=== PATIENT | male | born 1960 | race Caucasian/White ===

== ENCOUNTER 2025-07-24 10:38 | Outpatient (AMB) | payer OTHER, SELFPAY ==
--- NOTE | 2025-07-24 10:52 | A.OFFVIS_ITS ---
Intake Visit Reasons: follow up Allergies No Known Allergies Allergy (Verified 07/24/25 10:58) Medication List - Last Reconciled 07/24/25 by Emily Hill CNP aspirin 81 mg PO DAILY atorvastatin (Lipitor) 80 mg PO DAILY bismuth subsalicylate (Bismuth) 2 tabs PO QID carbidopa-levodopa 25-100 mg (Sinemet) 2 tabs PO .five times a day cholecalciferol (vitamin D3) 25 mcg PO DAILY clonazepam (Klonopin) 0.5 mg PO BID divalproex 250 mg PO TID lurasidone (Latuda) 60 mg PO DAILY melatonin 10 mg PO BEDTIME PRN paroxetine HCl 20 mg PO DAILY primidone 100 mg PO BID quetiapine (Seroquel) 25 mg PO BEDTIME HPI Comments Details: 65-year-old man with history of hepatitis C, CHF, MCI, and psychiatric disorder treated with multiple medications (including Seroquel, paroxetine, Latuda, clonazepam, and divalproex sodium) here for tremor. He has over 20-year history of shaking in his hands, R > L, that slowly worsened, but also involves his head, jaw, and right leg beginning around 2021. He denies family history of tremor. He was having more tremors in both hands at rest. Tremors were bothersome. He had some trouble eating because of tremors, especially soup. No difficulty swallowing. He was taking carbidopa-levodopa 2 tablets five times a day, and primidone 100mg twice a day. He was walking with cane or walker, and has had a few falls, with last fall about 1 week ago. Mood was so-so. He said psychiatric medications were currently being prescribed by PCP, and he was on wait list for psychiatrist and therapist. Sleep was so-so. COUNT INCLUDES THE [facility] Medical History (Updated 07/24/25 @ 11:06 by Emily Hill CNP) HLD (hyperlipidemia) Generalized anxiety disorder Hepatitis C Parkinsonian tremor CHF (congestive heart failure) Hypertension Bipolar disorder Benign essential tremor Review of Systems Const Denies chills, Denies daytime sleepiness, Reports difficulty sleeping, Denies fatigue, Denies fever(s), Denies frequent falls, Denies headache(s), Denies increased appetite, Denies poor appetite, Denies snoring, Denies weakness, Denies weight gain and Denies weight loss Eyes Denies loss of vision ENT Denies vertigo, Denies dizziness, Denies headache(s) and Denies neck pain Card Denies chest pain at rest, Denies chest pain with activity, Denies syncope, Denies leg edema, Denies palpitations, Denies dyspnea and Denies dyspnea on exertion Resp Denies cough, Denies dyspnea, Denies dyspnea on exertion and Denies snoring GI Denies abdominal pain, Denies constipation, Denies heartburn, Denies diarrhea and Denies nausea Denies urinary frequency, Denies urinary incontinence and Denies urinary urgency Musc Reports abnormal gait, Denies back pain, Denies myalgias, Reports arthralgias, Denies neck pain, Denies numbness and Denies tingling Neuro Reports abnormal gait, Denies vertigo, Denies dizziness, Denies syncope, Denies frequent falls, Denies headache(s), Denies lack of coordination, Denies loss of vision, Denies memory loss, Denies numbness, Denies Other visual disturbances, Reports restless legs, Denies seizure-like activity, Denies tingling, Denies paresthesias, Reports tremor(s) and Denies weakness Psych Reports anxiety, Denies depression, Denies auditory hallucinations, Denies memory loss and Denies visual hallucinations Endo Denies fatigue and Denies palpitations Physical Exam Const Other: General Appearance:? normal, in no acute distress. Heart:? S1, S2 normal, no murmurs. Lungs:? clear anteriorly and posteriorly. Musculoskeletal:? normal. Extremities:? no edema. Psych:? alert, oriented, cognitive function intact, cooperative with exam. Neuro Other: Abnormal Neurological Findings:?Mod resting tremor in hands R > L, intermittent resting tremor in R leg. Hand tremor on sustained posture R > L. Tremor to head and jaw. Mod cogwheeling rigidity bilaterally. Shuffling gait with forwarding posture and reduced arm swing, with cane. Decreased facial expressions and blinking frequency. Mental Status: alert and oriented X 3. Normal attention, orientation, memory, and affect. Cranial Nerves: Pupils are equal, round, and reactive to light. External ocular muscles are intact. Visual carvajal are full, no ptosis. Face is symmetrical, no facial weakness or droop. Facial sensations are normal. Tongue protrudes in midline. Palate elevates symmetrically. Shoulder shrugging is normal Motor Examination: Normal muscle tone, bulk and strength. No atrophy or fasciculations. No drift of the extended upper extremities. DTR 2+. Plantars are flexor. Sensory Exam: Normal light touch, temperature, pinprick, vibration, and joint- position sensations. Rhomberg sign is absent. Coordination: No ataxia. No titubation. Gait Exam: As above. Cerebellar Signs: [id number] is okay. Extrapyramidal System: As above. Speech: Normal. 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 Follow up in 6-8 weeks or sooner as needed. (2) Parkinsonian tremor: Code(s): G20.C - Parkinsonism, unspecified Category: Medical Plan: Decrease carbidopa-levodopa 25-100mg 2 tablets four times a day. (3) Benign essential tremor: Code(s): G25.0 - Essential tremor Category: Medical Plan: Continue primidone 100mg 1 tablet twice a day. Medications: New amantadine HCl 100 mg PO BID 60 tabs 2RF 30 days Changed From primidone 100 mg PO BID To primidone 100 mg (2 x 50 mg) PO BID 360 tabs 1RF 90 days From carbidopa-levodopa 25-100 mg (Sinemet) 2 tabs PO .five times a day To carbidopa-levodopa 25-100 mg (Sinemet) 2 tabs PO QID 720 tabs 1RF 90 days Coding Level of Care Code Est Pt Level 4 (29847) Diagnoses Parkinsonism due to drugs G21.19 Parkinsonian tremor G20.C Benign essential tremor G25.0
--- OUTSIDE RECORDS SUMMARY | 2025-07-24 12:37 | XMS_ITS ---
Author Name [facility] Organization Unknown Care Team Organization Name Specialty Phone Email Start Date End [facility] 02/22/2023 024
== END 2025-07-24 11:13 | disposition home or self-care (01) ==
LOC: HO.HSM 10:38
PROVIDERS: PCP Internal Medicine Rheumatology; Visit Provider Registered Nurse
DX: G21.19 Other drug induced secondary parkinsonism (principal); G20.C Parkinsonism, unspecified; G25.0 Essential tremor
CPT/HCPCS: 99214

== ENCOUNTER → 2025-07-24 10:38 | Outpatient (BNVA) | payer OTHER, SELFPAY | PROVIDERS: PCP Internal Medicine Rheumatology; Visit Provider Registered Nurse | DX: G25.0 Essential tremor (principal); G21.19 Other drug induced secondary parkinsonism; Z79.899 Other long term (current) drug therapy | CPT/HCPCS: 99212 ==